=== PATIENT | female | born 1995 | race Two or more races ===

== ENCOUNTER 2017-04-24 19:30 | Emergency (ER) | payer OTHER ==
[~2017-04-24] VITALS: Ht 162.6 cm; Wt 83.6 kg
[2017-04-24 19:49] VITALS: Ht 162.6 cm; Wt 83.6 kg
--- NOTE | 2017-04-24 21:51 | RADRPT ---
PROCEDURE: XR Chest. CLINICAL INDICATION: chest pain TECHNIQUE: Single frontal view of the chest was obtained COMPARISON: 06/20/08 FINDINGS: The heart and mediastinum are within normal limits. The lungs are clear. There is no pleural effusion or pneumothorax. RPTAT: AA IMPRESSION: No acute disease. .Bobby Gotti MD, Date Time Electronically viewed and signed by .Bobby Gotti MD, on 04/24/2017 21:51 .S/
[2017-04-24] MEDS ORDERED: KETOROLAC 60 MG INJ IM STA (21:59)
[2017-04-24] MEDS ORDERED: LIDOCAINE/MYLANTA 40 ML BTL PO ONE (22:30)
[2017-04-24] MEDS ORDERED: FAMOTIDINE 20 MG TAB PO ONE (22:30)
[2017-04-24] MEDS ORDERED: IBUP-1542 PO (23:01)
[2017-04-24 23:19] VITALS: BP 121/74; PULSE 69; RESP 16; TEMP 97.9
--- NOTE | 2017-04-24 23:20 | ERD ---
ER Documentation Chief Complaint Chief Complaint Chest pain HPI 21-year-old female patient with no significant past medical history presents to the ED complaining of mid chest pain that is nonradiating that started earlier today. Patient reports that she has had a dry cough for 1 week. States that taking deep breaths worsens the pain. Describes the pain as sharp and rates it 8 out of 10. Reports that she recently had sinusitis and was taking antibiotics. States that she feels slightly short of breath. Denies any wheezing, pain, nausea, vomiting, diarrhea, fever, chills. Denies any sick contacts. Denies any recent traveling. Denies any recent surgeries. Denies any smoking, alcohol use, drug use. Denies any leg swelling. Denies taking control. ROS All systems reviewed and are negative except as per history of present illness. Medications Home Meds Active Scripts Ibuprofen* (Motrin*) 600 Mg Tab, 600 MG PO Q6, #30 TAB Prov:VIN GOMEZ PA-C 04/24/17 Allergies Allergies: Coded Allergies: No Known Allergy (Unverified , 04/24/17) PMhx/Soc Medical and Surgical Hx: pt denies Medical Hx, pt denies Surgical Hx Hx Alcohol Use: No Hx Substance Use: No Hx Tobacco Use: No Smoking Status: Never smoker Physical Exam Vitals Vital Signs Date Time Temp Pulse Resp B/P Pulse Ox O2 Delivery O2 Flow Rate FiO2 04/24/17 23:19 97.9 69 16 121/74 98 Room Air 04/24/17 19:49 98.7 82 20 126/68 98 Physical Exam Const: Vhe-eww-coivbrlhc, well-nourished. In no acute distress. Head: Atraumatic, normocephalic Eyes: Normal Conjunctiva without injection. No purulent discharge. PERRL. EOMI ENT: Normal external ear. Ear canal without erythema. Tympanic membrane pearly scales without effusion or bulging. Nasal canal clear with normal turbinates. Moist oropharynx without tonsillar exudates. Non-erythematous pharynx. Uvula midline. No drooling. No trismus. Neck: Full range of motion. No meningismus. No cervical lymphadenopathy. Resp: Clear to auscultation bilaterally. No wheezing, rhonchi, rales, or crackles. No accessory muscle use. No retractions. Cardio: Regular rate and rhythm. No murmurs, rubs or gallops. Abd: Soft, non tender, non distended. Normal bowel sounds. No palpable masses. No rebound tenderness. No guarding. Skin: No petechiae or rashes Back: No midline tenderness. No CVA tenderness. Ext: No cyanosis, or edema. Neur: Awake and alert. Psych: Normal Mood and Affect Results 24 hrs Current Medications Medications (Trade) Dose Ordered Sig/Kristy Route PRN Reason Start Time Stop Time Status Last Admin Dose Admin Ketorolac Tromethamine (Toradol) 60 mg ONCE STAT IM 04/24/17 21:59 04/24/17 22:00 DC 04/24/17 22:11 Miscellaneous Medication (Gi Cocktail (2)) 40 ml ONCE ONCE PO 04/24/17 22:30 04/24/17 22:31 DC 04/24/17 22:28 Famotidine (Pepcid) 20 mg ONCE ONCE PO 04/24/17 22:30 04/24/17 22:31 DC 04/24/17 22:28 Procedures/MDM 21-year-old female patient with no significant past medical history presents to the ED complaining of mid sternal chest pain that occurred earlier today associated with 1 week of dry cough. Patient is afebrile and nontoxic- appearing. Patient has normal vital signs. Patient is not tachycardic. Patient has a pulse oxygenation of 98%. Based on the PERC criteria, patient has a low risk of having a pulmonary embolism. No indication for CTA or d- dimer. Chest x-ray, EKG was ordered to further evaluate patient. Chest x-ray shows no evidence of pleural effusion, pneumothorax, pneumonia. Patient was given Toradol here in the ED with improvement of her symptoms. After given Toradol she felt like a burning sensation, GI cocktail, famotidine was ordered to further treat patient with improvement. EKG reviewed and interpreted by Dr. Diggs Rate/Rhythm: [73 bpm, Normal Sinus Rhythm] No ectopy, no ST elevations, normal axis. QRS, ST, T-waves: [No changes consistent w/ acute ischemia] Impression: [No evidence of ischemia or arrhythmia] PROCEDURE: XR Chest. CLINICAL INDICATION: chest pain TECHNIQUE: Single frontal view of the chest was obtained COMPARISON: 06/20/08 FINDINGS: The heart and mediastinum are within normal limits. The lungs are clear. There is no pleural effusion or pneumothorax. RPTAT: AA IMPRESSION: No acute disease. Differentials include pleuritis vs. GERD vs. costochondritis. Low suspicion for acute myocardial infarction, pneumothorax, pneumonia, cardiac tamponade, Zwkvb-Iaemyvpmx-Pexni Syndrome, Brugada Syndrome, pulmonary embolism, AAA, aortic dissection, thoracic aortic dissection, endocarditis, pericarditis, cocaine-related ischemia, Boerhaave's syndrome, cardiac dysrhythmias,meningitis , intracranial bleed, seizure, stroke, TIA or other emergent conditions. Discharge medications: Ibuprofen Follow up with primary care physician in 1-2 days. Patient instructed to return to the ED tomorrow for further evaluation and treatment if symptoms do not improve. Instructed patient to return to the ED sooner for any worsening symptoms. Patient's questions were answered. Patient understood and agreed with discharge plan. Patient discharged stable. Disclaimer: Inadvertent spelling and grammatical errors are likely due to EHR/ dictation software use and do not reflect on the overall quality of patient care. Also, please note that the electronic time recorded on this note does not necessarily reflect the actual time of the patient encounter. Departure Diagnosis: Primary Impression: Chest pain Chest pain type: unspecified Qualified Code: R07.9 - Chest pain, unspecified type Additional Impression: Cough Condition: Stable Patient Instructions: Pleurisy, Chest Pain, Uncertain Cause, Uri, Viral, No Abx (Adult) Referrals: REPLACED BY [facility] YOU HAVE RECEIVED A MEDICAL SCREENING EXAM AND THE RESULTS INDICATE THAT YOU DO NOT HAVE A CONDITION THAT REQUIRES URGENT TREATMENT IN THE EMERGENCY DEPARTMENT. FURTHER EVALUATION AND TREATMENT OF YOUR CONDITION CAN WAIT UNTIL YOU ARE SEEN IN YOUR DOCTORS OFFICE WITHIN THE NEXT 1-2 DAYS. IT IS YOUR RESPONSIBILITY TO MAKE AN APPOINTMENT FOR FOLOW-UP CARE. IF YOU HAVE A PRIMARY DOCTOR --you should call your primary doctor and schedule an appointment IF YOU DO NOT HAVE A PRIMARY DOCTOR YOU CAN CALL OUR PHYSICIAN REFERRAL HOTLINE AT IF YOU CAN NOT AFFORD TO SEE A PHYSICIAN YOU CAN CHOSE FROM THE FOLLOWING REPLACED BY [facility] [address] [facility] [address] [facility] [facility] [address] [facility] [address] [facility] [facility] [address] [facility]. [facility]. [address] [facility]. [facility] YOU HAVE RECEIVED A MEDICAL SCREENING EXAM AND THE RESULTS INDICATE THAT YOU DO NOT HAVE A CONDITION THAT REQUIRES URGENT TREATMENT IN THE EMERGENCY DEPARTMENT. FURTHER EVALUATION AND TREATMENT OF YOUR CONDITION CAN WAIT UNTIL YOU ARE SEEN IN YOUR DOCTORS OFFICE WITHIN THE NEXT 1-2 DAYS. IT IS YOUR RESPONSIBILITY TO MAKE AN APPOINTMENT FOR FOLOW-UP CARE. IF YOU HAVE A PRIMARY DOCTOR --you should call your primary doctor and schedule and appointment IF YOU DO NOT HAVE A PRIMARY DOCTOR YOU CAN CALL OUR PHYSICIAN REFERRAL HOTLINE AT . IF YOU CAN NOT AFFORD TO SEE A PHYSICIAN YOU CAN CHOSE FROM THE FOLLOWING [facility] INSTITUTIONS: [facility] [address] [place] [address] [facility] [address] [place], [place] [id number] [place] [address] [address] [place] [address] [facility] URGENT CARE/SPECIALTIES Additional Instructions: FOLLOW UP WITH YOUR PRIMARY CARE PHYSICIAN TOMORROW or here in the ED for repeat examination if symptoms do not improve. Return to this facility if you are not improving as expected - palpatations, worsening chest pain, wheezing, fever, shortness of breath, etc. VIN GOMEZ PA-C Apr 24, 2017 23:20
== END 2017-04-24 23:19 | disposition home or self-care (01) ==
LOC: FTE 19:30
DX: R07.9 Chest pain, unspecified (principal); R05 Cough
CPT/HCPCS: 71010; 93005; 96372; J1885; Z7502; Z7610